=== PATIENT | male | born 1965 | race Caucasian/White ===

== ENCOUNTER 2019-01-19 09:07 | Outpatient (REF) | payer BC, SELFPAY ==
[2019-01-19 19:57] LABS: ALT 49 U/L (16-63); AST 24 U/L (15-37); Albumin 4.2 g/dL (3.4-5.0); Alkaline Phosphatase 71 U/L (46-116); Anion Gap 10.8 mmol/L (3-11); BUN 20 mg/dL (7-18); Bilirubin, Total 0.6 mg/dL (0.2-1.0); CO2 26.2 mmol/L (21.0-32.0); CREATININE 1.11 mg/dL (0.70-1.30); Calculated LDL 91 mg/dL; Chloride 104 mmol/L (98-107); Cholesterol 163 mg/dL (50-200); Glucose 111 mg/dL (70-100); HDL Cholesterol 59 mg/dL (40-60); Potassium 4.5 mmol/L (3.5-5.1); Sodium 141 mmol/L (136-145); Triglyceride 66 mg/dL (30-150)
== END 2019-01-19 09:27 ==
LOC: NCHCN 09:07
PROVIDERS: PCP Physician Assistant Medical; Visit Provider Nurse Practitioner Family
DX: E78.5 Hyperlipidemia, unspecified (principal); I10 Essential (primary) hypertension
CPT/HCPCS: 80053; 80061

== ENCOUNTER 2020-01-07 18:39 | Outpatient (REF) | payer BC, SELFPAY ==
[2020-01-07 19:07] LABS: Anion Gap 6.1 mmol/L (3-11); BUN 25 mg/dL (7-18); CO2 25.9 mmol/L (21.0-32.0); CREATININE 1.17 mg/dL (0.70-1.30); Calcium 8.8 mg/dL (8.5-10.1); Chloride 104 mmol/L (98-107); Glucose 103 mg/dL (74-106); Potassium 4.3 mmol/L (3.5-5.1); Sodium 136 mmol/L (136-145)
[2020-01-10 11:19] LABS: Lyme Ab w Rflx to Lyme Confirm Negative (Negative)
== END 2020-01-07 18:59 ==
LOC: NCHCN 18:39
PROVIDERS: PCP Physician Assistant Medical; Visit Provider Internal Medicine
DX: I10 Essential (primary) hypertension (principal); E66.9 Obesity, unspecified; M77.8 Other enthesopathies, not elsewhere classified
CPT/HCPCS: 80048; 86618

== ENCOUNTER 2020-07-14 02:23 | Outpatient (CLI) | payer BC, SELFPAY ==
[2020-07-14 10:14] LABS: Source Nasal/Nares
[2020-07-14 13:30] LABS: COVID-19 PCR Negative (Negative)
== END 2020-07-14 02:24 | disposition home or self-care (01) ==
LOC: LBO 02:23
PROVIDERS: PCP Physician Assistant; Visit Provider Surgery
DX: Z20.822 Contact with and (suspected) exposure to COVID-19 (principal); Z01.818 Encounter for other preprocedural examination
CPT/HCPCS: 87635

== ENCOUNTER 2020-07-17 09:14 | Day surgery (SDC) | payer BC, SELFPAY ==
--- NOTE | 2020-07-17 06:50 | W.COLOREPORT ---
Date of service: 07/17/20 Time of Service: 10:07 Colonoscopy Report Date of procedure: 07/17/20 Pre-op diagnosis general: Colon cancer Screening Post-op diagnosis procedure note: other (rectal polyp) Procedure: Colonoscopy with polypectomy Surgeon: Alondra Deluna Anesthesia Type: General:No Airway (ASA 2/ Ayanna Sheffield CRNA) Estimated blood loss (mL): 2 Pathology: other (rectal polyp) Complications: None Disposition: same day Indications: The patient is here for Colonoscopy pre-op. He has no family history of colon cancer. He has not had any bowel habit changes. -Discussed colonoscopy bowel prep as well as the procedure. Discussed possible complications of the procedure to include bleeding, pain, perforation, missed small lesion/polyp, sore throat, aspiration and adverse reaction to the medications. Questions were answered to patient?s satisfaction. No guarantees were implied or given. Prep: Miralax/Dulcolax Procedure Start Time: 10:07 Procedure End Time: 10:29 Retraction Time: 16 minutes Findings: One small polyp in the rectum. Most likely benign Procedure Description: After informed consent was obtained the patient was taken to the procedure room and placed in a left decubitous position. Monitors were applied and a time out was done. The patients name, date of , procedure, allergies to medications and metal in their body was reviewed. The patient was then sedated. Once sedated and comfortable a rectal exam was done. External exam was normal. Internal exam revealed a normal sphincter tone and no palpable masses. The prostate felt smooth. The scope was then introduced and retro-flexed. No internal hemorrhoids, polyps or masses were identified on retro-flexion. The scope was then advanced to the cecum without difficulty. The ileocecal vlave and appendiceal orifice were identified. The prep was good. The scope was then slowly retracted over 16 minutes back into the rectum. Polyps were removed with cold forceps in the rectum. There was no diverticulosis noted. The scope was removed and the patient was woken up and taken back to Same day surgery in stable condition. The patient tolerated the procedure well and there were no immediate complications. Follow up: The patient should follow up in 10 years unless they develop changes in bowel habits or other new gastrointestinal complaints.
--- NOTE | 2020-07-17 06:51 | W.PM.DSUDISC ---
Discharge Plan Disposition Patient Disposition: HOME Condition: Good Discharge Details Reason For Visit: colonoscopy Attending Provider: Alondra Deluna Primary Care Provider: Sylvia Tomas Home Meds and New Rx's Prescriptions: Continued ibuprofen 200 mg capsule 200 mg PO Q6H PRNRF: 0 aspirin [Adult Aspirin Regimen] 81 mg tablet,delayed release (DR/EC) 81 mg PO DAILY RF: 0 ascorbate calcium (vitamin C) 500 mg tablet 500 mg PO DAILY RF: 0 vitamin E (dl, acetate) 400 unit capsule 450 mg PO DAILY RF: 0 omega-3 fatty acids [Fish Oil Concentrate] 1,000 mg capsule 1,000 mg PO DAILY RF: 0 losartan 25 mg tablet 25 mg PO DAILY RF: 0 atorvastatin 10 mg tablet 10 mg PO QHS RF: 0 Discontinued bisacodyl [Dulcolax (bisacodyl)] 5 mg tablet,delayed release (DR/EC) 5 mg PO ONCE Qty: 4 RF: 0 polyethylene glycol 3350 17 gram/dose powder 238 g PO ONCE Qty: 238 RF: 0 Discharge Instructions Additional Instructions: Findings: One small polyp, most likely benign Follow up: most likely 10 years Please call if you develop: fevers >101.5 Nausea or Vomiting Abdominal pain that is not transient Rectal bleeding that is more then a tbsp A hard abdomen and inability to pass gas DAY SURGERY UNIT POST ENDOSCOPY INSTRUCTIONS Instructions for everyone who is given Anesthesia: For your safety, please do the following for the next 24 Hours: a. Do not drive or operate dangerous equipment b. Do not drink alcohol beverages or use any recreational drugs for the first 24 hours or while taking pain medications. The medications in your body may have a reaction that can be dangerous. c. Do not make any important decisions or sign any important papers 1. Generally there are no restrictions on your activity after a day or so has gone by, but you may feel a bit fatigued for a few days. 2. After you arrive home you may have a light meal and return to a normal diet as you can tolerate it without feeling sick to your stomach. 3. After surgery, you may feel pain or discomfort. This should be only transient, but if it persists please contact your doctor. 4. If there are any questions regarding the findings of your procedure, please feel free to contact your doctor. 6. If you are unable to contact your doctor with a problem, contact the hospital at [phone]. 7. Continue all your regular medications unless directed otherwise. I understand the above instructions and have no questions. Signature of Patient or Responsible Adult Escort Date/Time Name of Responsible Adult Escort Signature of Nurse Date/Time Activity:: Activity as Tolerated Diet:: As Tolerated Discharge Orders Discharge Orders: Discharge Order (Routine); Ordered 07/17/20 Ordered By: Alondra Deluna
--- NOTE | 2020-07-17 09:17 | ANES.PREOP_ITS ---
General Info Date of Service This is a Shared Provider Document. All providers who document on this will be required to sign document once completed. Please Communicate with Team Date Performed: 07/17/20 Height: 6 ft Weight: 111.811 kg Body Mass Index (BMI): 33.4 Surgical Procedure: Operation Date: 07/17/20 10:35 Proposed Procedures Side Surgeon edgar Deluna MD Vital Signs and Lab Results Point of Care Results Nursing Point of Care Results: No Data to Display Lab Results Blood Type / Crossmatch: No Data to Display Complete Blood Count: White Blood Count 7.36 k/cumm (4.4-10.8) 07/30/11 08:15 07/30/11 Red Blood Count 5.29 m/cumm (4.50-6.00) 07/30/11 08:15 07/30/11 Hemoglobin 15.4 gm/dL (13.5-17.5) 07/30/11 08:15 07/30/11 Hematocrit 44.0 % (40.0-50.0) 07/30/11 08:15 07/30/11 Platelet Count 213 x1000/uL (130-400) 07/30/11 08:15 07/30/11 Complete Metabolic Panel: Sodium Level 136 mmol/L (136-145) 01/07/20 15:30 01/07/20 Potassium Level 4.3 mmol/L (3.5-5.1) 01/07/20 15:30 01/07/20 Chloride Level 104 mmol/L (98-107) 01/07/20 15:30 01/07/20 Carbon Dioxide Level 25.9 mmol/L (21.0-32.0) 01/07/20 15:30 01/07/20 Blood Urea Nitrogen 25 mg/dL (7-18) H 01/07/20 15:30 01/07/20 Creatinine 1.17 mg/dL (0.70-1.30) 01/07/20 15:30 01/07/20 Calcium Level 8.8 mg/dL (8.5-10.1) 01/07/20 15:30 01/07/20 Albumin 4.2 g/dL (3.4-5.0) 01/19/19 08:30 01/19/19 Glucose Level 103 mg/dL (74-106) 01/07/20 15:30 01/07/20 Liver Function Panel: Alanine Aminotransferase (ALT/SGPT) 49 U/L (16-63) 01/19/19 08:30 01/19/19 Aspartate Amino Transf (AST/SGOT) 24 U/L (15-37) 01/19/19 08:30 01/19/19 Coagulation Panel: No Data to Display Cardiac Panel: No Data to Display Arterial Blood Gas: No Data to Display Venous Blood Gas: No Data to Display Pancreas Panel: No Data to Display Thyroid Panel: No Data to Display Infectious Disease: Coronavirus (COVID-19)(PCR) Negative (Negative) 07/14/20 08:48 07/14/20 Coronavirus 2019 Source Nasal/nares 07/14/20 08:48 07/14/20 Blood Cultures: Blood Culture Toxicology Panel: No Data to Display Panel: No Data to Display PFSH Medical History Alcohol use Hyperlipidemia Hypertension Marijuana use Social History (Updated 07/04/20 @ 10:19 by WILLIAM Finn) Smoking/Tobacco Use Status: Never Smoking risk assessment performed?: Yes Alcohol Intake: current Alcohol Intake frequency: 0-2 drinks per day Drug use: Occasionally Substance use type: marijuana Current gender identity: male Do you feel safe at home: Yes Do you feel safe in your relationship?: Yes Meds Allergies and Home Medications Allergies Allergy/AdvReac Type Severity Reaction Status Date / Time No Known Allergies Allergy Verified 07/14/20 10:22 Current Visit Medication Generic Name Dose Route Start Last Admin Trade Name Freq PRN Reason Stop Dose Admin Hyoscyamine Sulfate 0.125 mg 07/17/20 06:52 Hyoscyamine 0.125 Mg Sl/Oral/Chew SL DIRECTED PRN Ringer's Solution 1,000 mls @ 80 mls/hr 07/17/20 06:00 IV 08/13/20 23:59 INFUSION [facility] IV Miscellaneous Supplies 1 each 07/17/20 06:00 Iv Access IV 08/13/20 23:59 DIRECTED [facility] Ondansetron HCl 4 mg 07/17/20 06:52 Ondansetron 4 Mg/2 Ml Vial IVP Q4H PRN PRN Nausea / Vomiting Sodium Chloride 0 ml 07/17/20 06:00 Normal Saline Flush 10 Ml Syr IV 08/13/20 23:59 PRN PRN Sodium Chloride 0 ml 07/17/20 06:00 Normal Saline 10 Ml Vial IJ 08/13/20 23:59 DIRECTED PRN Sterile Water 0 ml 07/17/20 06:00 Water,Injection,Sterile 10 Ml Vial IJ 08/13/20 23:59 DIRECTED PRN Home Medication Medication Instructions Recorded ascorbate calcium (vitamin C) 500 500 mg PO DAILY 05/19/20 mg tablet aspirin 81 mg tablet,delayed 81 mg PO DAILY 05/19/20 release atorvastatin 10 mg tablet 10 mg PO QHS 05/19/20 ibuprofen 200 mg capsule 200 mg PO Q6H PRN 05/19/20 losartan 25 mg tablet 25 mg PO DAILY 05/19/20 omega-3 fatty acids 1,000 mg 1,000 mg PO DAILY 05/19/20 capsule vitamin E (dl, acetate) 400 unit 450 mg PO DAILY 05/19/20 capsule
[2020-07-17 09:20] VITALS: BP 159/87; PULSE 64; RESP 18; TEMP 36.6; O2SAT 100
[2020-07-17] MEDS: Lactated Ringers 1,000 ML 80 ML IV (09:40)
--- NOTE | 2020-07-17 09:41 | W.ANESPRE ---
Anesthesia Assessment and Plan Anesthesia History Personal History: No History of General Anesthesia Family History: No Family History of Anesthesia Complications Exercise Tolerance Exercise Tolerance: Metabolic Equivalents>4 Pertinent Negatives Pertinent Negatives: No Symptoms of GERD Cardiac & Pulmonary Exam Cardiac Exam: Normal S1/S2 Heart Sounds Pulmonary Exam: Clear Bilateral Breath Sounds Airway Exam Known Difficult Airway: No Mallampati Class: 2 Mouth Opening: Normal (> 3cm) Thyromental Distance: Greater than 3 cm Facial Hair: Full Chiu Neck Range of Motion: Full ROM Neck Circumference: Normal Teeth Condition: Normal Dentition ASA Classification ASA Score: ASA 2 ASA Emergency: No NPO Status NPO Status: NPO Clears >2 hours, Solids >8 hours Anesthesia Plan Anesthesia Technique: General Anesthesia Airway Planned: Natural Airway Monitors Used: Standard Monitors General Info Date of Service This is a Shared Provider Document. All providers who document on this will be required to sign document once completed. Please Communicate with Team Date Performed: 07/17/20 Height: 6 ft Weight: 111.2 kg Body Mass Index (BMI): 33.2 Surgical Procedure: Operation Date: 07/17/20 10:35 Proposed Procedures Side Surgeon p Jonah Deluna MD Vital Signs and Lab Results Vital Signs Most Recent Vital Signs in EMR: Most Recent Vital Signs Temp Pulse Resp BP Pulse Ox 36.6 C 64 18 159/87 H 100 07/17/20 09:20 07/17/20 09:20 07/17/20 09:20 07/17/20 09:20 07/17/20 09:20 Point of Care Results Nursing Point of Care Results: No Data to Display Lab Results Blood Type / Crossmatch: No Data to Display Complete Blood Count: White Blood Count 7.36 k/cumm (4.4-10.8) 07/30/11 08:15 07/30/11 Red Blood Count 5.29 m/cumm (4.50-6.00) 07/30/11 08:15 07/30/11 Hemoglobin 15.4 gm/dL (13.5-17.5) 07/30/11 08:15 07/30/11 Hematocrit 44.0 % (40.0-50.0) 07/30/11 08:15 07/30/11 Platelet Count 213 x1000/uL (130-400) 07/30/11 08:15 07/30/11 Complete Metabolic Panel: Sodium Level 136 mmol/L (136-145) 01/07/20 15:30 01/07/20 Potassium Level 4.3 mmol/L (3.5-5.1) 01/07/20 15:30 01/07/20 Chloride Level 104 mmol/L (98-107) 01/07/20 15:30 01/07/20 Carbon Dioxide Level 25.9 mmol/L (21.0-32.0) 01/07/20 15:30 01/07/20 Blood Urea Nitrogen 25 mg/dL (7-18) H 01/07/20 15:30 01/07/20 Creatinine 1.17 mg/dL (0.70-1.30) 01/07/20 15:30 01/07/20 Calcium Level 8.8 mg/dL (8.5-10.1) 01/07/20 15:30 01/07/20 Albumin 4.2 g/dL (3.4-5.0) 01/19/19 08:30 01/19/19 Glucose Level 103 mg/dL (74-106) 01/07/20 15:30 01/07/20 Liver Function Panel: Alanine Aminotransferase (ALT/SGPT) 49 U/L (16-63) 01/19/19 08:30 01/19/19 Aspartate Amino Transf (AST/SGOT) 24 U/L (15-37) 01/19/19 08:30 01/19/19 Coagulation Panel: No Data to Display Cardiac Panel: No Data to Display Arterial Blood Gas: No Data to Display Venous Blood Gas: No Data to Display Pancreas Panel: No Data to Display Thyroid Panel: No Data to Display Infectious Disease: Coronavirus (COVID-19)(PCR) Negative (Negative) 07/14/20 08:48 07/14/20 Coronavirus 2019 Source Nasal/nares 07/14/20 08:48 07/14/20 Blood Cultures: Blood Culture Toxicology Panel: No Data to Display Panel: No Data to Display [facility] Medical History Alcohol use Hyperlipidemia Hypertension Marijuana use Social History (Updated 07/04/20 @ 10:19 by WILLIAM Finn) Smoking/Tobacco Use Status: Never Smoking risk assessment performed?: Yes Alcohol Intake: current Alcohol Intake frequency: 0-2 drinks per day Drug use: Occasionally Substance use type: marijuana Current gender identity: male Do you feel safe at home: Yes Do you feel safe in your relationship?: Yes Meds Allergies and Home Medications Allergies Allergy/AdvReac Type Severity Reaction Status Date / Time No Known Allergies Allergy Verified 07/17/20 09:22 Current Visit Medication Generic Name Dose Route Start Last Admin Trade Name Joelq PRN Reason Stop Dose Admin Hyoscyamine Sulfate 0.125 mg 07/17/20 06:52 Hyoscyamine 0.125 Mg Sl/Oral/Chew SL DIRECTED PRN Ringer's Solution 1,000 mls @ 80 mls/hr 07/17/20 06:00 07/17/20 09:40 IV 08/13/20 23:59 80 mls/hr INFUSION [facility] Administration IV Miscellaneous Supplies 1 each 07/17/20 06:00 Iv Access IV 08/13/20 23:59 DIRECTED [facility] Ondansetron HCl 4 mg 07/17/20 06:52 Ondansetron 4 Mg/2 Ml Vial IVP Q4H PRN PRN Nausea / Vomiting Sodium Chloride 0 ml 07/17/20 06:00 Normal Saline Flush 10 Ml Syr IV 08/13/20 23:59 PRN PRN Sodium Chloride 0 ml 07/17/20 06:00 Normal Saline 10 Ml Vial IJ 08/13/20 23:59 DIRECTED PRN Sterile Water 0 ml 07/17/20 06:00 Water,Injection,Sterile 10 Ml Vial IJ 08/13/20 23:59 DIRECTED PRN Home Medication Medication Instructions Recorded ascorbate calcium (vitamin C) 500 500 mg PO DAILY 05/19/20 mg tablet aspirin 81 mg tablet,delayed 81 mg PO DAILY 05/19/20 release atorvastatin 10 mg tablet 10 mg PO QHS 05/19/20 ibuprofen 200 mg capsule 200 mg PO Q6H PRN 05/19/20 losartan 25 mg tablet 25 mg PO DAILY 05/19/20 omega-3 fatty acids 1,000 mg 1,000 mg PO DAILY 05/19/20 capsule vitamin E (dl, acetate) 400 unit 450 mg PO DAILY 05/19/20 capsule
[2020-07-17 09:47] VITALS: BMI 33.2
--- NOTE | 2020-07-17 10:30 | BOWEL_PTH ---
PATIENT: Judd Parson LOC: [facility] U#:[id number] AGE/SX: 55/M ROOM: RE07/17/[address]: Alondra Deluna MD : [id number] BED: DIS: 07/17/2020 SPEC #: [id number] RECD: 07/17/20 12:44 STATUS: [facility] REQ #: [id number] FLO: 07/17/20 10:[address]: Alondra Deluna DEPT: Surgical Specimen RECD BY: Nurys Monzon ENTERED: 07/17/20 12:44 SP TYPE: Bowel OTHR DR: Sylvia Tomas Tissues: 1 - BIOPSY BOWEL Procedures: GROSS AND MICRO LEVEL 4 Comments: [id number]
[2020-07-17 10:40] VITALS: BP 139/71; PULSE 73; RESP 16; TEMP 36.4; O2SAT 96
--- NOTE | 2020-07-17 10:47 | W.ANESPOSTOP ---
Postoperative Evaluation Date, Time and Location Date Performed: 07/17/20 Time Performed: 10:47 Patient Location: Day Surgery Unit Vital Signs Most Recent Imported Vital Signs: Most Recent Vital Signs Temp Pulse Resp BP Pulse Ox 36.6 C 64 18 159/87 H 100 07/17/20 09:20 07/17/20 09:20 07/17/20 09:20 07/17/20 09:20 07/17/20 09:20 Assessment Mental Status: Awake (Alert & Oriented to Patient Baseline) Airway and Respiratory Function: Patent airway with normal (patient baseline) respiratory exam Cardiovascular Function: Hemodynamically Stable Hydration Status: Adequately Hydrated Nausea & Vomiting: No Nausea or Vomiting Pain: Pt. Denies Any Pain Peripheral Nerve Block: Patient did not receive a nerve block
== END 2020-07-17 11:25 | disposition home or self-care (01) ==
LOC: SUR 09:15
PROVIDERS: PCP Physician Assistant; Visit Provider Surgery
PROC: 0DJD8ZZ Inspection of Lower Intestinal Tract, Via Natural or Artificial Opening Endoscopic (ICD-10-PCS; CPT 45378; principal; 2020-07-17 10:30)
DX: Z12.11 Encounter for screening for malignant neoplasm of colon (principal); K62.1 Rectal polyp
CPT/HCPCS: 45380; 88305; J2001

== ENCOUNTER 2021-04-19 19:04 | Outpatient (REF) | payer BC, SELFPAY ==
[2021-04-19 19:48] LABS: Anion Gap 12.6 mmol/L (3-11); BUN 24 mg/dL (7-18); CO2 23.4 mmol/L (21.0-32.0); CREATININE 1.3 mg/dL (0.70-1.30); Calcium 8.5 mg/dL (8.5-10.1); Chloride 103 mmol/L (98-107); Estimated GFR 57.31 (mL/min/1.73m2); Glucose 202 mg/dL (74-106); Potassium 3.8 mmol/L (3.5-5.1); Sodium 139 mmol/L (136-145)
== END 2021-04-19 19:05 | disposition home or self-care (01) ==
LOC: NCHCN 19:04
PROVIDERS: PCP Physician Assistant; Visit Provider Physician Assistant
DX: I10 Essential (primary) hypertension (principal)
CPT/HCPCS: 80048

== ENCOUNTER 2021-12-24 08:28 | Outpatient (CLI) | payer BC, SELFPAY ==
--- NOTE | 2021-12-24 08:00 | DI.RAD_ITS ---
Exam(s) XR KNEE RT 3V AP,LAT,MARK EXAM: XR KNEE RT 3V AP,LAT,MARK CLINICAL HISTORY: right worse than left knee pain. TECHNIQUE: 2D digital imaging was performed. Three views. COMPARISON: No exams were available for comparison FINDINGS: BONES: No acute fracture is present. No bony destructive lesion is seen. JOINTS: The knee is normally aligned. No joint effusion is seen. Mild chondrocalcinosis visible in the menisci. Joint spaces are maintained. Minimal periarticular s purring. SOFT TISSUE: Normal. IMPRESSION: Mild degenerative changes and chondrocalcinosis. DATA REPOSITORY: RADIATION DOSE DELIVERED:
--- NOTE | 2021-12-24 08:00 | DI.RAD_ITS ---
Exam(s) XR KNEE LT 3V AP,LAT,MARK EXAM: XR KNEE LT 3V AP,LAT,MARK CLINICAL HISTORY: pain in left knee. TECHNIQUE: 2D digital imaging was performed. Three views. COMPARISON: CR XR KNEE RT 3V AP,LAT,MARK from 12/24/2021 FINDINGS: BONES: No acute fracture is present. No bony destructive lesion is seen. JOINTS: The knee is normally aligned. No joint effusion is seen. Mild narrowing medial femoral tibial joint space. Chondrocalcinosis visible in the medial meniscus. SOFT TISSUE: Prepatellar swelling. IMPRESSION: Mild degenerative changes and chondrocalcinosis. DATA REPOSITORY: RADIATION DOSE DELIVERED:
== END 2021-12-24 08:29 | disposition home or self-care (01) ==
LOC: DIORS 08:29
PROVIDERS: PCP Physician Assistant; Referring Provider Physician Assistant; Visit Provider Physician Assistant Surgical
DX: M25.561 Pain in right knee (principal); M25.562 Pain in left knee; M11.261 Other chondrocalcinosis, right knee; M11.262 Other chondrocalcinosis, left knee; M17.0 Bilateral primary osteoarthritis of knee
CPT/HCPCS: 73562

== ENCOUNTER 2022-08-07 12:14 | Outpatient (REF) | payer BC, SELFPAY ==
[2022-08-07 19:54] LABS: ALT 48 U/L (16-63); AST 24 U/L (15-37); Albumin 3.9 g/dL (3.4-5.0); Alkaline Phosphatase 75 U/L (46-116); Anion Gap 7.9 mmol/L (3-11); BUN 22 mg/dL (7-18); Bilirubin, Total 0.5 mg/dL (0.2-1.0); CO2 27.1 mmol/L (21.0-32.0); CREATININE 1.1 mg/dL (0.70-1.30); Calcium 8.9 mg/dL (8.5-10.1); Chloride 107 mmol/L (98-107); Estimated GFR 78.79 (mL/min/1.73m2); Glucose 121 mg/dL (74-106); Potassium 4.6 mmol/L (3.5-5.1); Sodium 142 mmol/L (136-145); Total Protein 7.1 g/dL (6.4-8.2)
== END 2022-08-07 12:15 | disposition home or self-care (01) ==
LOC: NCHCN 12:14
PROVIDERS: PCP Physician Assistant; Visit Provider Physician Assistant
DX: I10 Essential (primary) hypertension (principal)
CPT/HCPCS: 80053

== ENCOUNTER 2023-08-21 08:59 | Outpatient (REF) | payer BC, SELFPAY ==
[2023-08-21 21:23] LABS: ALT 51 U/L (16-63); AST 26 U/L (15-37); Albumin 4.1 g/dL (3.4-5.0); Alkaline Phosphatase 79 U/L (46-116); Anion Gap 8.6 mmol/L (3-11); BUN 20 mg/dL (7-18); Bilirubin, Total 0.8 mg/dL (0.2-1.0); CO2 27.4 mmol/L (21.0-32.0); Calcium 9.3 mg/dL (8.5-10.1); Chloride 105 mmol/L (98-107); Estimated GFR 87.78 (mL/min/1.73m2); Glucose 125 mg/dL (74-106); LDL CHOLESTEROL 88 mg/dL (<100); Potassium 4.5 mmol/L (3.5-5.1); Sodium 141 mmol/L (136-145); Total Protein 7.2 g/dL (6.4-8.2)
== END 2023-08-21 09:00 | disposition home or self-care (01) ==
LOC: NCHCN 08:59
PROVIDERS: PCP Physician Assistant; Visit Provider Physician Assistant
DX: Z00.00 Encounter for general adult medical examination without abnormal findings (principal)
CPT/HCPCS: 80053; 83721

== ENCOUNTER 2024-02-24 11:54 | Outpatient (REF) | payer BC, SELFPAY ==
[2024-02-24 20:01] LABS: Abs Immature Grans 0.02 10^3/uL (0.0-0.06); Absolute Basophil Count 0.07 10^3/uL (0.0-0.2); Absolute Eosinophil Count 0.18 10^3/uL (0.0-0.7); Absolute Monocyte Count 0.67 10^3/uL (0.1-0.8); Basophils % 0.7 %; Eosinophils % 1.9 %; HCT 44.7 % (40.0-50.0); HGB 14.9 g/dL (13.5-17.5); Immature Grans % 0.2 %; Lymphocytes % 24.9 %; MCH 28.9 pg (27.0-33.0); MCHC 33.3 % (32.0-36.0); MCV 87 fL (80-95); MPV 10.5 fL (8.0-11.0); Neutrophils % 65.3 %; Platelet Count 208 10^3/uL (130-400); RBC 5.15 10^6/uL (4.36-5.78); RDW 11.5 % (11.8-14.1); RDW-SD 36.6 fL; WBC 9.64 10^3/uL (4.4-10.8)
[2024-02-24 20:27] LABS: ALT 47 U/L (16-63); AST 32 U/L (15-37); Alkaline Phosphatase 86 U/L (46-116); Anion Gap 10.4 mmol/L (3-11); BUN 24 mg/dL (7-18); Bilirubin, Total 0.49 mg/dL (0.2-1.0); CO2 25.6 mmol/L (21.0-32.0); CREATININE 1.6 mg/dL (0.70-1.30); Calcium 9.1 mg/dL (8.5-10.1); Chloride 107 mmol/L (98-107); Estimated GFR 49.63 (mL/min/1.73m2); Glucose 107 mg/dL (74-106); LDL CHOLESTEROL 95 mg/dL (<100); Magnesium 1.8 mg/dL (1.8-2.4); Potassium 4.5 mmol/L (3.5-5.1); Sodium 143 mmol/L (136-145); TSH (W/Ref FT4) 1.66 uIU/mL (0.36-3.74); Total Protein 7.3 g/dL (6.4-8.2)
[2024-02-24 20:48] LABS: Uric Acid 7.4 mg/dL (3.5-7.2)
[2024-02-25 19:03] LABS: PSA, Screening 1.1 ng/mL (<=3.5)
== END 2024-02-24 11:55 | disposition home or self-care (01) ==
LOC: NCHCN 11:54
PROVIDERS: PCP Physician Assistant; Visit Provider Physician Assistant
DX: I25.10 Atherosclerotic heart disease of native coronary artery without angina pectoris (principal); R07.89 Other chest pain; M79.671 Pain in right foot
CPT/HCPCS: 80053; 83721; 84153; 83735; 84443; 84484; 84550; 85025

== ENCOUNTER 2024-06-01 12:01 | Outpatient (REF) | payer BC, SELFPAY ==
[2024-06-01 19:19] LABS: Magnesium 2.1 mg/dL
== END 2024-06-01 12:02 | disposition home or self-care (01) ==
LOC: NCHCN 12:01
PROVIDERS: PCP Physician Assistant; Visit Provider Physician Assistant
DX: E83.42 Hypomagnesemia (principal)
CPT/HCPCS: 83735

== ENCOUNTER 2024-12-27 02:18 | Outpatient (CLI) | payer BC, SELFPAY ==
--- NOTE | 2024-12-27 06:15 | DI.RAD_ITS ---
Exam(s) XR FOOT RT COMPLETE EXAM: XR FOOT RT COMPLETE CLINICAL HISTORY: Right foot pain,m79.671. TECHNIQUE: 2D digital imaging was performed of the right foot. Three images were obtained. AP, oblique and lateral views were obtained. COMPARISON: No exams were available for comparison FINDINGS: BONES: No acute fracture is present. No bony destructive lesion is seen. There is a small enthesophyte at the posterior calcaneus. JOINTS: No dislocation present. There are mild degenerative changes seen at the 1st MTP joint characterized by joint space narrowing and osteophytes. There also mild degenerative changes seen at the tarsometatarsal joints. SOFT TISSUE: There is a well corticated osseous density at the dorsal aspect of the 1st MTP joint. IMPRESSION: 1. Degenerative changes seen in the right foot as described above. 2. Calcaneal spur. DATA REPOSITORY: RADIATION DOSE DELIVERED:
--- NOTE | 2024-12-27 06:15 | DI.RAD_ITS ---
Exam(s) XR FOOT LT COMPLETE EXAM: XR FOOT LT COMPLETE CLINICAL HISTORY: Left foot pain,[id number]. TECHNIQUE: 2D digital imaging was performed of the left foot. Three images were obtained. AP, oblique and lateral views were obtained. COMPARISON: No exams were available for comparison FINDINGS: BONES: No acute fracture is present. No bony destructive lesion is seen. There is a small plantar calcaneal spur. There is a small enthesophyte at the posterior calcaneus. JOINTS: No dislocation present. There are mild degenerative changes seen in the midfoot. There also mild degenerative changes seen at the 1st MTP joint. SOFT TISSUE: There is mild soft tissue swelling lateral to the 5th MTP joint which can be seen with a bunionette deformity or pressure lesion. IMPRESSION: 1. Mild chronic degenerative changes of the foot. 2. Calcaneal spurs. 3. Mild soft tissue swelling lateral to the 5th MTP joint which can be seen with a bunionette deformity or pressure lesion. DATA REPOSITORY: RADIATION DOSE DELIVERED:
== END 2024-12-27 02:38 ==
PROVIDERS: PCP Physician Assistant; Visit Provider Podiatrist
DX: M79.672 Pain in left foot (principal); M79.671 Pain in right foot; M77.32 Calcaneal spur, left foot; M77.31 Calcaneal spur, right foot
CPT/HCPCS: 73630

== ENCOUNTER 2025-03-03 14:28 | Outpatient (REF) | payer BC, SELFPAY ==
[2025-03-03 19:18] LABS: Abs Immature Grans 0.01 10^3/uL (0.0-0.06); HCT 39.3 % (40.0-50.0); HGB 13.2 g/dL (13.5-17.5); Immature Grans % 0.1 %; MCH 28.6 pg (27.0-33.0); MCHC 33.6 % (32.0-36.0); MCV 85 fL (80-95); MPV 10.5 fL (8.0-11.0); Platelet Count 183 10^3/uL (130-400); RBC 4.62 10^6/uL (4.36-5.78); RDW 11.8 % (11.8-14.1); RDW-SD 36.2 fL; WBC 7.08 10^3/uL (4.4-10.8)
[2025-03-03 19:40] LABS: ALT 41 U/L (10-49); AST 30 U/L (<34); Albumin 4.4 g/dL (3.2-5.0); Alkaline Phosphatase 68 U/L (46-116); Anion Gap 8.9 mmol/L (3-11); BUN 17 mg/dL (9-23); Bilirubin, Total 0.6 mg/dL (0.2-1.2); CO2 24.1 mmol/L (20.0-31.0); Calcium 8.9 mg/dL (8.3-10.6); Chloride 111 mmol/L (98-107); Cholesterol 110 mg/dL (<200); Glucose 122 mg/dL (74-106); HDL Cholesterol 41 mg/dL (>40); Potassium 4.3 mmol/L (3.5-5.1); Sodium 144 mmol/L (136-145); Total Protein 6.8 g/dL (5.7-8.2)
[2025-03-04 18:19] LABS: PSA, Screening 1.4 ng/mL (<=3.5)
== END 2025-03-03 14:29 | disposition home or self-care (01) ==
LOC: NCHCN 14:28
PROVIDERS: PCP Physician Assistant; Visit Provider Physician Assistant
DX: E78.5 Hyperlipidemia, unspecified (principal); Z12.5 Encounter for screening for malignant neoplasm of prostate; I10 Essential (primary) hypertension
CPT/HCPCS: 80053; 80061; 84153; 85025